=== PATIENT | male | born 1935 | race Caucasian/White ===

== ENCOUNTER 2018-09-11 16:27 | Emergency (ER) | payer MEDICARE ==
[~2018-09-11] VITALS: Ht 177.8 cm; Wt 88.4 kg
[2018-09-11 16:32] VITALS: BP 191/89
[2018-09-11] MEDS ORDERED: IBUPROFEN 200 MG TABLET ONE (16:59)
[2018-09-11] MEDS ORDERED: IBUPROFEN 200 MG TABLET PO ONE (17:00)
== END 2018-09-11 17:46 | disposition home or self-care (01) ==
LOC: ED 17:40
DX: S50.02XA Contusion of left elbow, initial encounter (principal); I10 Essential (primary) hypertension; E78.5 Hyperlipidemia, unspecified; W01.0XXA Fall on same level from slipping, tripping and stumbling without subsequent striking against object, initial encounter; Y93.01 Activity, walking, marching and hiking; Y92.89 Other specified places as the place of occurrence of the external cause; Y99.8 Other external cause status
CPT/HCPCS: 29105; 99283